=== PATIENT | male | born 1985 | race Caucasian/White ===

== ENCOUNTER 2019-10-23 20:38 | Observation (INO) | payer OTHER, SELFPAY ==
[2019-10-23 20:42] VITALS: BP 140/86; PULSE 134; RESP 22; TEMP 37.3; O2SAT 100
--- NOTE | 2019-10-23 20:47 | DI.RAD.S_ITS ---
PROCEDURE: XR CHEST 1V INDICATIONS: suspected sepsis TECHNIQUE: One view of the chest was acquired. COMPARISON: None. FINDINGS: Surgical changes and devices: None. Lungs and pleura: Lungs are clear. No pleural effusions or pneumothorax. Mediastinum: Mediastinal contours appear normal. Heart size is normal. Bones and chest wall: No suspicious bony lesions. Overlying soft tissues appear unremarkable. IMPRESSION: No acute cardiopulmonary pathology. Dictated by: Ethan Lucia M.D. on 10/23/2019 at 21:29 Approved by: Ethan Lucia M.D. on 10/23/2019 at 21:29
[2019-10-23 21:05] LABS: Hematocrit 43.9 % (41-53); Hemoglobin 15.1 g/dL (13.5-17.5); Mean Corpuscular HGB Conc 34.4 % (30-36); Mean Corpuscular Hemoglobin 29.8 PG (26-34); Mean Corpuscular Volume 86.6 fL (80-100); Platelet Count 114 X10^3/uL (150-400); Red Blood Cell Count 5.07 X10^6/uL (4.5-5.9); Red Cell Distribution Width 12.7 % (11.6-14.8); White Blood Cell Count 12.6 X10^3/uL (4.5-11.0)
[2019-10-23 21:06] LABS: Add Manual Diff / Slide Review YES
[2019-10-23] MEDS: SODIUM CHLORIDE 0.9% 1,000 ML 1000 ML IV (21:06)
[2019-10-23 21:10] LABS: INR 1.2 (0.9-1.3); Prothrombin Time 13.3 SECONDS (10.1-12.7)
--- NOTE | 2019-10-23 21:12 | ED.GENADULT ---
HPI - General Adult General Chief complaint: Abdominal Pain Stated complaint: lower abdominal pain x3 days Time Seen by Provider: 10/23/19 21:09 Source: patient Mode of arrival: Ambulatory Limitations: no limitations History of Present Illness HPI narrative: 34-year-old male otherwise healthy here for evaluation of lower abdominal pain. He states the symptoms have been present for the past several days. He states he is not having any urinary symptoms. Has had nausea but no vomiting. Also has had some fevers. Has never had anything like this in the past. He does state that he has had a couple episodes of loose stools which does not seem to change his abdominal pain. No recent travel. No recent antibiotics. No blood in the stool. Related Data Home Medications Medication Instructions Recorded Confirmed No Known Home Medications 10/23/19 10/23/19 Allergies Allergy/AdvReac Type Severity Reaction Status Date / Time No Known Drug Allergies Allergy Verified 10/23/19 20:44 Review of Systems Constitutional Constitutional: Reports fever(s) and Denies headache(s) ENT Ears, Nose, Mouth, and Throat: Denies headache(s) Cardiovascular Cardiovascular: Denies chest pain and Denies dyspnea Respiratory Respiratory: Denies dyspnea Gastrointestinal Gastrointestinal: Reports abdominal pain, Reports diarrhea, Reports nausea and Denies vomiting Genitourinary Genitourinary: Denies dysuria Genitourinary: Denies dysuria Musculoskeletal Musculoskeletal: Denies arthralgias and Denies myalgias Integumentary/Breasts Skin/Breast: Denies rash Neurologic Neurologic: Denies behavioral changes and Denies headache(s) Psychiatric Psychiatric: Denies behavioral changes Hematologic/Lymphatic Hematologic/Lymphatic: Denies easy bleeding and Denies easy bruising Allergic/Immunologic Allergic/Immunologic: Denies urticaria Patient History Medical History No significant past medical history (Acute) Surgical History (Updated 10/24/19 @ 01:41 by SAVANNA Mckeon) [place] teeth removed (Acute) Family History (Updated 10/24/19 @ 01:47 by SAVANNA Mckeon) Mother Diabetes, type I Social History household members: family Smoking Status: Never smoker Exam Initial Vital Signs Initial Vital Signs: Vital Signs Temperature 99.1 F 10/23/19 20:42 Pulse Rate 134 H 10/23/19 20:42 Respiratory Rate 22 10/23/19 20:42 Blood Pressure 140/86 10/23/19 20:42 Pulse Oximetry 100 10/23/19 20:42 Const General: cooperative Limitations: mental status not altered HENMT Head: normal to inspection and normocephalic Resp Effort & Inspection: normal respiratory effort Auscultation: clear to auscultation bilaterally Cardio Rate: tachycardic Rhythm: regular rhythm GI Inspection: non-distended Palpation: soft, firm and tender (Bilateral lower abdomen) Skin Lesions: no lesions Rashes: no rashes Neuro General: patient alert and patient awake Cognition: normal cognition Speech: speech normal Extrem General: normal to inspection and capillary refill normal Psych Appearance: grossly normal and well kempt Course Orders Ordered: ED Orders 10/23/19 20:46 EKG-12 Lead Stat 10/23/19 20:47 XR chest 1V Stat 10/23/19 20:51 Complete Blood Count AUTO DIFF Stat Comprehensive Metabolic Panel Stat Lactate (Lactic Acid) Stat Lipase Stat Partial Thromboplastin Time Stat Pathologist Review (for CBC) Stat Procalcitonin Stat Prothrombin Time INR Stat 10/23/19 21:09 Blood Culture Stat 10/23/19 21:13 CT abdomen pelvis w con Stat Acetaminophen (Tylenol) 650 mg PO Q6HR PRN PRN Reason: Fever/Mild Pain (1-3) Ciprofloxacin (Cipro) 400 mg in 200 mls @ 200 mls/hr IV NOW ALKA Last Infusion: 10/24/19 02:14 Dose: 0 mls/hr Documented by: Admin: 10/24/19 00:57 Dose: 200 mls/hr Documented by: ANAYELI Sodium Chloride (Normal Saline 0.9%) 1,000 mls @ 150 mls/hr IV CONT ALKA Stop: 11/23/19 05:54 Last Infusion: 10/24/19 00:25 Dose: 150 mls/hr Documented by: Admin: 10/23/19 23:11 Dose: 150 mls/hr Documented by: CARMELA Ciprofloxacin (Cipro) 400 mg in 200 mls @ 200 mls/hr IV Q12H ALKA Metronidazole (Flagyl) 500 mg in 100 mls @ 100 mls/hr IV Q6H ALKA Ketorolac Tromethamine (Toradol) 30 mg IV Q6HR PRN PRN Reason: Pain, Severe (7-10) Stop: 10/29/19 00:57 Naloxone HCl (Narcan) 0.2 mg IV Q2MIN PRN PRN Reason: Opiate Reversal Ondansetron HCl (Zofran) 4 mg IV Q6HR PRN PRN Reason: Nausea And Vomiting Last Admin: 10/24/19 01:53 Dose: 4 mg Documented by: ANAYELI Discontinued Medications Sodium Chloride (Normal Saline 0.9%) 1,000 mls @ 1,000 mls/hr IV BOLUS ONE Stop: 10/23/19 21:46 Last Infusion: 10/23/19 22:38 Dose: 0 mls/hr Documented by: MARIA DEL ROSARIO Infusion: 10/23/19 22:33 Dose: 1,000 mls/hr Documented by: MARIA DEL ROSARIO Infusion: 10/23/19 22:29 Dose: 1,000 mls/hr Documented by: MARIA DEL ROSARIO Infusion: 10/23/19 22:02 Dose: 1,000 mls/hr Documented by: MARIA DEL ROSARIO Infusion: 10/23/19 21:29 Dose: 0 mls/hr Documented by: Admin: 10/23/19 21:06 Dose: 1,000 mls/hr Documented by: CARMELA Metronidazole (Flagyl) 250 mg in 50 mls @ 100 mls/hr IV NOW ONE Stop: 10/23/19 23:24 Last Admin: 10/23/19 23:59 Dose: Not Given Documented by: LEONIDES Metronidazole (Flagyl) 500 mg in 100 mls @ 100 mls/hr IV NOW ONE Stop: 10/24/19 00:46 Last Infusion: 10/24/19 00:26 Dose: 0 mls/hr Documented by: Admin: 10/23/19 23:56 Dose: 100 mls/hr Documented by: LEONIDES Morphine Sulfate (Morphine) 1 mg IV NOW ONE Stop: 10/24/19 01:01 Last Admin: 10/24/19 01:46 Dose: 1 mg Documented by: ANAYELI Ondansetron HCl (Zofran) 4 mg IV NOW ONE Stop: 10/23/19 22:08 Last Admin: 10/23/19 22:14 Dose: 4 mg Documented by: CARMELA Vital Signs Vital signs: Vital Signs - 8 hr 10/23/19 21:39 10/23/19 22:00 Pulse Rate 95 H 91 H Respiratory Rate 17 22 Pulse Oximetry 97 95 Medical Decision Making Lab Data Lab results reviewed: Yes I reviewed the patient's lab results. Result diagrams: 10/23/19 20:51 10/23/19 20:51 Labs: Lab Results 10/23/19 10/23/19 10/23/19 Range/Units 20:51 20:51 20:51 WBC 12.6 H (4.5-11.0) X10^3/uL RBC 5.07 (4.5-5.9) X10^6/uL Hgb 15.1 (13.5-17.5) g/dL Hct 43.9 (41-53) % MCV 86.6 (80-100) fL MCH 29.8 (26-34) PG MCHC 34.4 (30-36) % RDW 12.7 (11.6-14.8) % Plt Count 114 L (150-400) X10^3/uL Neut % (Auto) Not Reportable Lymph % (Auto) Not Reportable [place] % (Auto) Not Reportable Eos % (Auto) Not Reportable Baso % (Auto) Not Reportable Lymph # (Auto) Not Reportable [place] # (Auto) Not Reportable Baso # (Auto) Not Reportable Total Counted 100 Seg Neutrophils % 27.0 L (38-70) % Lymphocytes % (Manual) 66.0 H (25-45) % Atypical Lymphs % 4.0 H ( - 0) % Monocytes % (Manual) 3.0 (2-11) % Neutrophils # (Manual) 3402 (1002-5634) /uL Reactive Lymphocytes 3+ H RBC Morphology Normal morphology PT 13.3 H (10.1-12.7) SECONDS INR 1.2 (0.9-1.3) APTT 30 (26.4-36.2) SECONDS Sodium 136 L (137-145) mmol/L Potassium 3.5 (3.4-5.1) mmol/L Chloride 104 (98-107) mmol/L Carbon Dioxide 25 (22-32) mmol/L BUN 12 (9-20) mg/dL Creatinine 0.93 (0.66-1.25) mg/dL Estimated GFR > 60.0 (>60) mL/min BUN/Creatinine Ratio 12.9 (6-22) Glucose 198 H (70-100) mg/dL Lactate (0.7-2.1) mmol/L Calcium 9.2 (8.4-10.2) mg/dL Total Bilirubin 1.0 (0.2-1.3) mg/dL AST 143 H (17-59) IU/L ALT 446 H (<50) IU/L Alkaline Phosphatase 145 H (38-126) U/L Total Protein 7.0 (6.3-8.2) g/dL Albumin 4.1 (3.5-5.0) g/dL Globulin 2.9 (1.7-4.1) g/dL Albumin/Globulin Ratio 1.4 (1.0-2.8) Lipase 70 (23-300) U/L Procalcitonin (<0.5) ng/mL COVID-19 PCR (Negative) 10/23/19 10/23/19 10/23/19 Range/Units 20:51 20:51 23:14 WBC (4.5-11.0) X10^3/uL RBC (4.5-5.9) X10^6/uL Hgb (13.5-17.5) g/dL Hct (41-53) % MCV (80-100) fL MCH (26-34) PG MCHC (30-36) % RDW (11.6-14.8) % Plt Count (150-400) X10^3/uL Neut % (Auto) Lymph % (Auto) [place] % (Auto) Eos % (Auto) Baso % (Auto) Lymph # (Auto) [place] # (Auto) Baso # (Auto) Total Counted Seg Neutrophils % (38-70) % Lymphocytes % (Manual) (25-45) % Atypical Lymphs % ( - 0) % Monocytes % (Manual) (2-11) % Neutrophils # (Manual) ([id number]) /uL Reactive Lymphocytes RBC Morphology PT (10.1-12.7) SECONDS INR (0.9-1.3) APTT (26.4-36.2) SECONDS Sodium (137-145) mmol/L Potassium (3.4-5.1) mmol/L Chloride (98-107) mmol/L Carbon Dioxide (22-32) mmol/L BUN (9-20) mg/dL Creatinine (0.66-1.25) mg/dL Estimated GFR (>60) mL/min BUN/Creatinine Ratio (6-22) Glucose (70-100) mg/dL Lactate 1.1 (0.7-2.1) mmol/L Calcium (8.4-10.2) mg/dL Total Bilirubin (0.2-1.3) mg/dL AST (17-59) IU/L ALT (<50) IU/L Alkaline Phosphatase (38-126) U/L Total Protein (6.3-8.2) g/dL Albumin (3.5-5.0) g/dL Globulin (1.7-4.1) g/dL Albumin/Globulin Ratio (1.0-2.8) Lipase (23-300) U/L Procalcitonin 0.19 (<0.5) ng/mL COVID-19 PCR Negative (Negative) Urine Dip Bedside Urine Glucose Negative Bedside Urine Bilirubin - Negative Bedside Urine Ketone - Negative Urine Specific [place] 1.005 Bedside Urine Occult Blood - Negative Bedside Urine pH 6.5 Bedside Urine Protein - Negative Bedside Urine Urobilinogen - Negative Bedside Urine Nitrite - Negative Bedside Urine Leukocytes - Negative Esterase Point of care testing: Urine Dip Bedside Urine Glucose Negative Bedside Urine Bilirubin - Negative Bedside Urine Ketone - Negative Urine Specific [place] 1.005 Bedside Urine Occult Blood - Negative Bedside Urine pH 6.5 Bedside Urine Protein - Negative Bedside Urine Urobilinogen - Negative Bedside Urine Nitrite - Negative Bedside Urine Leukocytes - Negative Esterase Imaging Data Chest x-ray: Radiologist's Impression: [place] [address] XRay Report Signed Patient: Beau Del Valle#: [id number] : 1985Acct:[id number] Age/Sex: 34 / MDate of Service: 10/23/19 Loc: ED Accession Number: [id number] Procedure: XR chest 1V Ordering Provider: Ad Reyez D.O. PROCEDURE: XR CHEST 1V INDICATIONS: suspected sepsis TECHNIQUE: One view of the chest was acquired. COMPARISON: None. FINDINGS: Surgical changes and devices: None. Lungs and pleura: Lungs are clear. No pleural effusions or pneumothorax. Mediastinum: Mediastinal contours appear normal. Heart size is normal. Bones and chest wall: No suspicious bony lesions. Overlying soft tissues appear unremarkable. IMPRESSION: No acute cardiopulmonary pathology. Dictated by: Ethan Lucia M.D. on 10/23/2019 at 21:29 Approved by: Ethan Lucia M.D. on 10/23/2019 at 21:29 CT scan - abdomen/pelvis: Radiologist's Impression: [address] [address] [address] Scan Report Signed Patient: Gregory Del ValleMR#: [id number] : 1985Acct:[id number] Age/Sex: 34 / MDate of Service: 10/23/19 Loc: ED Accession Number: [id number] Procedure: CT abdomen pelvis w con Ordering Provider: Ad Reyez D.O. PROCEDURE: CT ABDOMEN PELVIS W CON INDICATIONS: bilateral lower abd pain TECHNIQUE: After the administration of intravenous contrast, 5 mm thick sections acquired from the diaphragm to the symphysis. 5 mm coronal and sagittal reformats were acquired. For radiation dose reduction, the following was used: automated exposure control, adjustment of mA and/or kV according to patient size. COMPARISON: None. FINDINGS: Image quality: Excellent. ABDOMEN: Lung bases: Lung bases are clear. Heart size is normal. Solid organs: Liver is normal in size and enhancement. Gallbladder is contracted and shows no gross abnormality.. Biliary system is non dilated. Pancreas enhances normally. There is splenomegaly, no discrete splenic lesion. No adrenal nodules. Kidneys demonstrate normal size and enhancement, without hydronephrosis. Peritoneum and bowel: There is no bowel obstruction. No small bowel or gastric wall thickening. Appendix is visualized and is within normal limits. Diffuse colonic wall thickening and edema is seen with mild pericolonic fat stranding. No abscess collection. No free fluid or free air. Nodes and vessels: No retroperitoneal or mesenteric adenopathy by size criteria. Aorta and inferior vena cava are normal in size. Miscellaneous: No ventral hernias. PELVIS: Genitourinary: Bladder wall thickness is normal. Miscellaneous: No inguinal hernias or adenopathy. Bones: No suspicious bony lesions. No vertebral body compression fractures. IMPRESSION: 1. Finding is suggestive of pancolitis. Normal appendix. No bowel obstruction. No free fluid or free air. 2. Splenomegaly, no discrete splenic lesion. Dictated by: Ethan Lucia M.D. on 10/23/2019 at 21:45 Approved by: Ethan Lucia M.D. on 10/23/2019 at 21:48 ECG Data Attestation: I personally reviewed and interpreted this ECG as follows: Prior ECG tracings: not available for review Interpretation: Sinus tachycardia Ventricular rate 100 Normal axis Normal QRS Normal QTC No ST T wave changes MDM Narrative Medical decision making narrative: Patient with bilateral lower abdominal tenderness with guarding. Is tachycardic. Has a leukocytosis. CT scan shows a morales colitis. No signs of appendicitis or obstruction or perforation. I did discuss the case with with general surgery who recommended IV antibiotics and admitting the patient to the medicine service for fluids and symptom control. I did discuss the case with SAADIA Garcia the [facility] hospital provider who will admit the patient. I did discuss the findings of the CT scan with the patient and his family who are at bedside. We also discuss the need for admission. They expressed understanding and agreement. Antibiotics started in the emergency department. Discharge Plan Departure Patient Disposition: Admitted as Observation Clinical Impression: Colitis Discharge Date/Time: 10/24/19 00:26 Admit Date/Time: 10/23/19 23:27 Admit Provider: Edita Garcia
[2019-10-23 21:13] LABS: PTT Partial Thromboplastin Tim 30 SECONDS (26.4-36.2)
[2019-10-23 21:16] VITALS: BP 135/84; PULSE 101; RESP 20; TEMP 37.6; O2SAT 95
[2019-10-23 21:17] LABS: Alanine Aminotransferase 446 IU/L (<50); Albumin 4.1 g/dL (3.5-5.0); Albumin Globulin Ratio 1.4 (1.0-2.8); Alkaline Phosphatase 145 U/L (38-126); Aspartate Aminotransferase 143 IU/L (17-59); BUN Creatinine Ratio 12.9 (6-22); Blood Urea Nitrogen 12 mg/dL (9-20); Calcium 9.2 mg/dL (8.4-10.2); Carbon Dioxide 25 mmol/L (22-32); Chloride 104 mmol/L (98-107); Estimated Glomerular Filt Rate > 60.0 mL/min (>60); Globulin 2.9 g/dL (1.7-4.1); Glucose 198 mg/dL (70-100); HEMOLYSIS < 15 (0-50); Lactate (Lactic Acid) 1.1 mmol/L (0.7-2.1); Lipase 70 U/L (23-300); Potassium 3.5 mmol/L (3.4-5.1); Sodium 136 mmol/L (137-145)
[2019-10-23 21:31] LABS: Procalcitonin 0.19 ng/mL (<0.5)
[2019-10-23 21:36] LABS: Neutrophils Absolute Manual 3402 /uL (3000-5900); RBC Morphology Normal Morphology; Total Cells Counted 100
[2019-10-23 21:37] LABS: Reactive Lymphocytes 3+
[2019-10-23 21:39] VITALS: PULSE 95; RESP 17; O2SAT 97
[2019-10-23 22:00] VITALS: PULSE 91; RESP 22; O2SAT 95
[2019-10-23] MEDS: ONDANSETRON 4 MG/2 ML INJ IV (22:14)
[2019-10-23] MEDS: SODIUM CHLORIDE 0.9% 1,000 ML 150 ML IV (23:11)
[2019-10-23] MEDS: metroNIDAZOLE 500 MG/100 ML PIGGYBACK 100 MG IV (23:56)
[2019-10-24] VITALS (8 sets, daily range): BP systolic 114–130; BP diastolic 59–86; PULSE 65–89; RESP 16–20; TEMP 36.8–37.7; O2SAT 94–99; BMI 27.5
[2019-10-24 00:41] LABS: COVID19 -Nasal RAPID Negative (Negative)
[2019-10-24] MEDS: CIPROFLOXACIN 400 MG/200 ML PIGGYBACK 200 MG IV ×2 (00:57→12:07)
--- NOTE | 2019-10-24 01:11 | P.HP_ITS ---
History of Present Illness History of Present Illness Date Patient Seen: 10/24/19 Time Patient Seen: 00:30 Chief complaint: lower abdominal pain x3 days Narrative: Gregory Del Valle is a 34-year-old male with a 3 day history of fevers and lower abdominal pain. He states he has been having diarrheal episodes about once in our and is unable to eat. He stated that he had been taking his temperature and it was sitting in the 102-103 degrees over the last 2 days. He describes his abdominal pain is being in the lower pelvic area radiating across his lower abdomen. He does have an intact appendix. He denies shortness of breath, cough, chest pain, he does endorse having fevers, abdominal cramping and diarrhea. 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 He denies any other health history or taking any prescription medications. In the emergency department he was diagnosed with pancolitis and started on IV Cipro and Flagyl. CT that was done did not indicate appendicitis but did indicate some colonic wall thickening and inflammation. Patient's temp was 99.9?, blood pressure 132/72, heart rate 85, respiratory rate 20, oxygen saturation 97% on room air, weight 87 kilos, BMI of 27.5. His WBC was 12.6, RBC 5.07, hemoglobin 15.1, hematocrit 43.9, platelet count of a 114, sodium 136, potassium 3.5, chloride 104, CO2 25, BUN 12, creatinine 0.93, GFR greater than 60, glucose 198, lactate 1.1, calcium 9.2, total bilirubin 1.0, AST 143, ALT 446, alk-phos 145, lipase normal at 70, procalcitonin 0.19, and COVID- 19 was negative. Patient History Medical History (Updated 10/24/19 @ 01:41 by SAVANNA Mckeon) No significant past medical history (Acute) Surgical History (Updated 10/24/19 @ 01:41 by SAVANNA Mckeon) [place] teeth removed (Acute) Family & Social History Family History (Updated 10/24/19 @ 01:47 by SAVANNA Mckeon) Mother Diabetes, type I Social History: household members family Prior Living Arrangements House Safety & Behavioral: Feels Safe in Current No Environment Been Physically Hurt or No Threatened By a Person Suicidal Ideation Description None Suicide Plan Description No Plan Tobacco & Substance use: Smoking Status Never smoker alcohol intake frequency a few times a week Substance Use Type does not use Meds Home Medications and Allergies Home Medications Medication Instructions Recorded Confirmed Type No Known Home Medications 10/23/19 10/23/19 History Allergies Allergy/AdvReac Type Severity Reaction Status Date / Time No Known Drug Allergies Allergy Verified 10/23/19 20:44 Review of Systems Review of Systems ROS: Yes All systems reviewed with the patient and are negative except as otherwise documented Exam Vital Signs (past 8 hours): - 10/23/19 20:42 10/23/19 21:16 10/23/19 21:39 Temperature 99.1 F 99.6 F Pulse Rate 134 H 101 H 95 H Respiratory Rate 22 20 17 Blood Pressure 140/86 135/84 Pulse Oximetry 100 95 97 10/23/19 22:00 10/24/19 00:20 Temperature 99.8 F H Pulse Rate 91 H 85 Respiratory Rate 22 20 Blood Pressure 126/86 Pulse Oximetry 95 99 Oxygen Delivery Method Room Air Narrative Exam Narrative: Gen: Alert, oriented, well-developed 34 y.o. male, appears uncomfortable HEENT: normocephalic, atraumatic, conjunctiva clear, sclera non-icteric, oral mucosa pink and moist Neck: supple, full ROM, no JVD, trachea is midline Resp: Lungs CTA, non-labored breathing CV: RRR, no murmur or rubs Abd: soft, diffusely tender, hypoactive BTs Skin: no lesions or rashes, dry and intact Neuro: Alert and oriented X 4 w/no focal deficits. Speech clear and coherent. Extremities: moves all 4 extremities, is ambulatory, negative Mike?s sign Psyche: normal mood and affect. Objective Labs Result Diagrams: 10/23/19 20:51 10/23/19 20:51 Labs: Laboratory Results - last 24 hr 10/23/19 10/23/19 10/23/19 20:51 20:51 20:51 WBC 12.6 H RBC 5.07 Hgb 15.1 Hct 43.9 MCV 86.6 MCH 29.8 MCHC 34.4 RDW 12.7 Plt Count 114 L Neut % (Auto) Not Reportable Lymph % (Auto) Not Reportable [place] % (Auto) Not Reportable Eos % (Auto) Not Reportable Baso % (Auto) Not Reportable Lymph # (Auto) Not Reportable [place] # (Auto) Not Reportable Baso # (Auto) Not Reportable Total Counted 100 Seg Neutrophils % 27.0 L Lymphocytes % (Manual) 66.0 H Atypical Lymphs % 4.0 H Monocytes % (Manual) 3.0 Neutrophils # (Manual) 3402 Reactive Lymphocytes 3+ H RBC Morphology Normal morphology PT 13.3 H INR 1.2 APTT 30 Sodium 136 L Potassium 3.5 Chloride 104 Carbon Dioxide 25 BUN 12 Creatinine 0.93 Estimated GFR > 60.0 BUN/Creatinine Ratio 12.9 Glucose 198 H Lactate Calcium 9.2 Total Bilirubin 1.0 AST 143 H ALT 446 H Alkaline Phosphatase 145 H Total Protein 7.0 Albumin 4.1 Globulin 2.9 Albumin/Globulin Ratio 1.4 Lipase 70 Procalcitonin COVID-19 PCR 10/23/19 10/23/19 10/23/19 20:51 20:51 23:14 WBC RBC Hgb Hct MCV MCH MCHC RDW Plt Count Neut % (Auto) Lymph % (Auto) [place] % (Auto) Eos % (Auto) Baso % (Auto) Lymph # (Auto) [place] # (Auto) Baso # (Auto) Total Counted Seg Neutrophils % Lymphocytes % (Manual) Atypical Lymphs % Monocytes % (Manual) Neutrophils # (Manual) Reactive Lymphocytes RBC Morphology PT INR APTT Sodium Potassium Chloride Carbon Dioxide BUN Creatinine Estimated GFR BUN/Creatinine Ratio Glucose Lactate 1.1 Calcium Total Bilirubin AST ALT Alkaline Phosphatase Total Protein Albumin Globulin Albumin/Globulin Ratio Lipase Procalcitonin 0.19 COVID-19 PCR Negative Assessment & Plan Assessment & Plan narrative: Gregory Del Valle will be placed into observaton for treatment and management of a morales colitis. -IV Cipro and metronidazole Q 6 hours -NPO tonight clears in the morning -pain control with IV morphine and ketorolac -If worsening, will request surgical consultation Consults: None Patient is observation status as his stay is not likely to exceed 2 midnights. FEN: IV NS at 125 ml/hour, NPO, advance to clears, CMP in the am. VTE prophylaxis: Bilateral SCDs Dispo: Likely discharged to home Code Status: as discussed with patient
[2019-10-24] MEDS: MORPHINE 2 MG/ML INJ 1 MG IV (01:46)
[2019-10-24] MEDS: ONDANSETRON 4 MG/2 ML INJ IV (01:53)
[2019-10-24] MEDS: KETOROLAC 30 MG/ML VIAL IV ×2 (07:33→14:28)
--- NOTE | 2019-10-24 10:49 | CM.DANOTE ---
DCP: Case received, EMR reviewed and met with patient. Introduced self and role. Was able to meet with patient and obtain information regarding his baseline activity level. DCP assessment completed with information currently available. Patient is a 34 year old male who admitted yesterday evening to the care of the hospitalist team. PCP: Dr. Solomon at [facility]. Payer: confirmed: [employer]. Patient came to the hospital secondary to having abdominal discomfort, loose stools and a fever. Patient holds current diagnosis of pancolitis. Met with patient in his room. He was sitting up in bed, alert and oriented, pleasant. 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 He resides in [place], his , Bertha, is out of the country at this time. He stated that he has plenty support of friends, if there is anything that he needs at discharge. P: DCP to continue to follow. Patient should be able to discharge home when he is medically stable. Dasha Post RN/Counter Top Maker
[2019-10-24 12:49] LABS: Clostridium difficile toxin AB Not Detected (Not Detect); Enteroaggregative E.coli Not Detected (Not Detect); Enteropathogenic E.coli Not Detected (Not Detect); Enterotoxigenic E.coli It/st Not Detected (Not Detect); Plesiomonsa shigelloides Not Detected (Not Detect); Salmonella Not Detected (Not Detect); Shiga-like toxin-prod E.coli Not Detected (Not Detect); Vibrio Not Detected (Not Detect); Vibrio cholerae Not Detected (Not Detect); Yersinia enterocolitica Not Detected (Not Detect)
[2019-10-24 12:50] LABS: Adenovirus F 40/41 Not Detected (Not Detect); Astrovirus Not Detected (Not Detect); Cryptosporidium Not Detected (Not Detect); Cyclospora cayetanensis Not Detected (Not Detect); Entamoeba histolytica Not Detected (Not Detect); Giardia lamblia Not Detected (Not Detect); Norovirus GI/GII Not Detected (Not Detect); Rotavirus A Not Detected (Not Detect); Shigella/Enteroinvasive E.coli Not Detected (Not Detect)
[2019-10-24 12:51] LABS: Sapovirus Not Detected (Not Detect)
[2019-10-24 12:52] LABS: Campylobacter Detected (Not Detect)
[2019-10-24] MEDS: AZITHROMYCIN 250 MG TABLET 500 MG PO (14:22)
[2019-10-24] MEDS: ACETAMINOPHEN 325 MG TABLET 650 MG PO (14:28)
[2019-10-24] MEDS: SODIUM CHLORIDE 0.9% 1,000 ML 150 ML IV (15:44)
[2019-10-25 05:48] LABS: Add Manual Diff / Slide Review NO; Basophils Absolute Auto 0 /uL (0-100); Basophils Percent Auto 0.2 % (0-2); Eosinophils Absolute Auto 0 /uL (0-450); Eosinophils Percent Auto 0.3 % (2-4); Hematocrit 38.5 % (41-53); Hemoglobin 13.4 g/dL (13.5-17.5); Lymphocytes Absolute Auto 4700 /uL (1100-4500); Lymphocytes Percent Auto 64.7 % (25-40); Mean Corpuscular HGB Conc 34.9 % (30-36); Mean Corpuscular Hemoglobin 30.3 PG (26-34); Mean Corpuscular Volume 86.9 fL (80-100); Monocytes Absolute Auto 600 /uL (0-900); Monocytes Percent Auto 8.2 % (3-14); Neutrophils Absolute Auto 1900 /uL (1500-7000); Neutrophils Percent Auto 26.6 % (50-75); Platelet Count 94 X10^3/uL (150-400); Red Blood Cell Count 4.43 X10^6/uL (4.5-5.9); Red Cell Distribution Width 12.3 % (11.6-14.8); White Blood Cell Count 7.2 X10^3/uL (4.5-11.0)
[2019-10-25 05:54] LABS: Alanine Aminotransferase 282 IU/L (<50); Albumin 3.1 g/dL (3.5-5.0); Albumin Globulin Ratio 1.2 (1.0-2.8); Alkaline Phosphatase 99 U/L (38-126); Aspartate Aminotransferase 104 IU/L (17-59); BUN Creatinine Ratio 5.9 (6-22); Bilirubin Total 0.7 mg/dL (0.2-1.3); Blood Urea Nitrogen 5 mg/dL (9-20); Calcium 8.1 mg/dL (8.4-10.2); Carbon Dioxide 28 mmol/L (22-32); Chloride 108 mmol/L (98-107); Estimated Glomerular Filt Rate > 60.0 mL/min (>60); Globulin 2.6 g/dL (1.7-4.1); Glucose 107 mg/dL (70-100); HEMOLYSIS < 15 (0-50); Magnesium 2.1 mg/dL (1.6-2.3); Sodium 138 mmol/L (137-145); Total Protein 5.7 g/dL (6.3-8.2)
[2019-10-25 07:00] VITALS: BP 124/67; PULSE 67; RESP 16; TEMP 36.3; O2SAT 97
[2019-10-25 07:16] LABS: HIV 1 & 2 Ab/Ag 4th Gen Combo NEGATIVE (NEGATIVE)
[2019-10-25 08:32] VITALS: O2SAT 97
[2019-10-25] MEDS: SODIUM CHLORIDE 0.9% FLUSH 10 ML IV (08:40)
[2019-10-25] MEDS: KETOROLAC 30 MG/ML VIAL IV (08:40)
--- NOTE | 2019-10-25 08:51 | PC.NURSE ---
Addendum entered by Azra Gupta R.N. 10/25/19 13:08: Went over dc instructions and meds with patient, questions answered. Rx for abx sent electronically to Headroom. Addendum entered by Azra Gupta R.N. 10/25/19 12:50: Patient ate about 50% of lunch without nausea or increase in pain. Patient reports having a loose bowel movement. Patient wanting to discharge. Original Note: Patient alert oriented, rates left side lower abdominal pain 4/10, given 30mg IV toradol. BT hypoactive on left, denies nausea. Reports last BM at 0400. Tolerated bland diet.
--- NOTE | 2019-10-25 09:02 | P.DS_ITS ---
History of Present Illness History of Present Illness Date Patient Seen: 10/25/19 Time Patient Seen: 09:02 Chief complaint: lower abdominal pain x3 days Narrative: As per SAVANNA Mckeon: Gregory Del Valle is a 34-year-old male with a 3 day history of fevers and lower abdominal pain. He states he has been having diarrheal episodes about once in our and is unable to eat. He stated that he had been taking his temperature and it was sitting in the 102-103 degrees over the last 2 days. He describes his abdominal pain is being in the lower pelvic area radiating across his lower abdomen. He does have an intact appendix. He denies shortness of breath, cough, chest pain, he does endorse having fevers, abdominal cramping and diarrhea. Patient is a [place] and was in [place] until July of this year. He denies any other health history or taking any prescription medications. In the emergency department he was diagnosed with pancolitis and started on IV Cipro and Flagyl. CT that was done did not indicate appendicitis but did indicate some colonic wall thickening and inflammation. Patient's temp was 99.9?, blood pressure 132/72, heart rate 85, respiratory rate 20, oxygen saturation 97% on room air, weight 87 kilos, BMI of 27.5. His WBC was 12.6, RBC 5.07, hemoglobin 15.1, hematocrit 43.9, platelet count of a 114, sodium 136, potassium 3.5, chloride 104, CO2 25, BUN 12, creatinine 0.93, GFR greater than 60, glucose 198, lactate 1.1, calcium 9.2, total bilirubin 1.0, AST 143, ALT 446, alk-phos 145, lipase normal at 70, procalcitonin 0.19, and COVID- 19 was negative. Discharge Providers Provider Date of admission: 10/23/19 23:27 Discharge Date: 10/25/19 Discharge provider: Gama Rubin DO Summary Hospital Course Discharge Diagnosis: 1. campylobacter colitis, acute, present on admission, improved. Hospital Course: Gregory Del Valle is a 34 year old male who presented with diarrhea. He then developed abdominal pain, nausea and vomiting and was not able to tolerate adequate PO intake. His CT scan showed a morales-coliitis. He was admitted under observation status. GI panel was sent which showed campylobacter infection. He was inititially on broad spectrum antibiotics and narrowed to oral azithromycin once results came back. He was discharged as soon as his diarrhea had improved to a tolerable level and he was tolerating adequate oral intake. He was discharged with a week of oral azithromycin and was advised to stop his course once he had his first regular stool. Status at Discharge Cognitive/behavioral status at discharge: oriented Time Spent with Patient Time spent: Less than 30 minutes Exam Vital Signs (past 8 hours): - 10/25/19 07:00 10/25/19 08:32 Temperature 97.4 F L Pulse Rate 67 Respiratory Rate 16 Blood Pressure 124/67 Pulse Oximetry 97 97 Oxygen Delivery Method Room Air Oxygen Flow Rate 0 Narrative Exam Narrative: GENERAL APPEARANCE: Well developed, well nourished, in no acute distress. SKIN: Inspection of the skin reveals no rashes, ulcerations or petechiae. HEENT: Normocephalic atraumatic, extraocular muscles are intact, oropharynx is clear and mucous membranes are moist, neck is supple without adenopathy NECK: Supple and symmetric. There was no thyroid enlargement, and no tenderness, or masses were felt. CHEST: Normal AP diameter and normal contour without any kyphoscoliosis. LUNGS: Auscultation of the lungs revealed no wheezes, rhonchi, or rales. CARDIOVASCULAR: There was a regular rate and rhythm without any murmurs, gallops, rubs. Peripheral pulses were 2+ and symmetric. ABDOMEN: Soft and nontender with normal bowel sounds. No ascites was noted. MUSCULOSKELETAL: There was no tenderness or effusions noted. Muscle strength and tone were normal. EXTREMITIES: No cyanosis, clubbing or edema. NEUROLOGIC: Alert and oriented x 3. Normal affect. Gait was normal. Strength is +5/5 in the Upper Extremities and Lower Extremities Bilaterally. Sensation to touch was normal. Objective Labs Result Diagrams: 10/25/19 05:24 10/25/19 05:24 Labs: Laboratory Results - last 24 hr 10/24/19 10/25/19 10/25/19 10:50 05:24 05:24 WBC 7.2 RBC 4.43 L Hgb 13.4 L Hct 38.5 L MCV 86.9 MCH 30.3 MCHC 34.9 RDW 12.3 Plt Count 94 L Neut % (Auto) 26.6 L Lymph % (Auto) 64.7 H [place] % (Auto) 8.2 Eos % (Auto) 0.3 L Baso % (Auto) 0.2 Neut # (Auto) 1900 Lymph # (Auto) 4700 H [place] # (Auto) 600 Eos # (Auto) 0 Baso # (Auto) 0 Sodium 138 Potassium 4.0 Chloride 108 H Carbon Dioxide 28 BUN 5 L Creatinine 0.85 Estimated GFR > 60.0 BUN/Creatinine Ratio 5.9 L Glucose 107 H Calcium 8.1 L Magnesium 2.1 Total Bilirubin 0.7 AST 104 H ALT 282 H Alkaline Phosphatase 99 Total Protein 5.7 L Albumin 3.1 L Globulin 2.6 Albumin/Globulin Ratio 1.2 Stl C. cayetanensis PCR Not detected Stool Rotavirus (PCR) Not detected Stool Adenovirus (PCR) Not detected Stool Astrovirus (PCR) Not detected Stool Cryptosporidium PCR Not detected Stl E.coli Shiga Tox PCR Not detected St Sh/Enteroin Ecoli PCR Not detected Stool E coli O157 PCR Not Reportable Stl Enterotoxigenic E PCR Not detected Stool EPEC (PCR) Not detected Stl E. histolytica PCR Not detected Stool Giardia Lamblia PCR Not detected Stool Sapovirus (PCR) Not detected Stl P. shigelloides PCR Not detected St Y.enterocolitica PCR Not detected Stool Vibrio (PCR) Not detected Stl Vibrio cholerae PCR Not detected Stl Enteroaggr Ecoli PCR Not detected Stl Norovirus GI/GII PCR Not detected Campylobacter (PCR) Detected H C. difficile Tox (PCR) Not detected HIV 1&2 Ab/P24 Ag 4thGn Salmonella (PCR) Not detected 10/25/19 05:24 WBC RBC Hgb Hct MCV MCH MCHC RDW Plt Count Neut % (Auto) Lymph % (Auto) [place] % (Auto) Eos % (Auto) Baso % (Auto) Neut # (Auto) Lymph # (Auto) [place] # (Auto) Eos # (Auto) Baso # (Auto) Sodium Potassium Chloride Carbon Dioxide BUN Creatinine Estimated GFR BUN/Creatinine Ratio Glucose Calcium Magnesium Total Bilirubin AST ALT Alkaline Phosphatase Total Protein Albumin Globulin Albumin/Globulin Ratio Stl C. cayetanensis PCR Stool Rotavirus (PCR) Stool Adenovirus (PCR) Stool Astrovirus (PCR) Stool Cryptosporidium PCR Stl E.coli Shiga Tox PCR St Sh/Enteroin Ecoli PCR Stool E coli O157 PCR Stl Enterotoxigenic E PCR Stool EPEC (PCR) Stl E. histolytica PCR Stool Giardia [place]lia PCR Stool Sapovirus (PCR) Stl P. shigelloides PCR St Y.enterocolitica PCR Stool Vibrio (PCR) Stl Vibrio cholerae PCR Stl Enteroaggr Ecoli PCR Stl Norovirus GI/GII PCR Campylobacter (PCR) C. difficile Tox (PCR) HIV 1&2 Ab/P24 Ag 4thGn Negative Salmonella (PCR) Discharge Plan Discharge Plan Patient Disposition: Home Discharge comment: You were admitted to the hospital with diarrhea. You were found to have an infection called campylobacter which is treated with antibiotics. You should continue the antibiotics until your symptoms resolve. You are being given a week of antibiotics but you can stop taking them when you have your first normal bowel movement. Should you start to have worsening stools please come back for further evaluation. Would eat a bland diet (BRAT diet) until symptoms are improved. Discharge orders & Medications Prescriptions: New azithromycin 500 mg tablet 500 mg PO Q24H 7 Days Qty: 7 RF: 0 No Action No Known Home Medications RF: 0 Discharge Health Status Health Concerns: Campylobacter Colitis Diet/Activity/Treatments Diet: Diet as Tolerated Activity: As tolerated Visit Report/Discharge Packet Instructions: [place] Diet Visit Report Forms: Patient Portal/API, Stroke Signs & Symptoms Discharge Data Attending Provider: Edita Garcia Admit Date/Time: 10/23/19 23:27 Discharges patient from system. Discharge Date/Time: 10/25/19 13:50
[2019-10-25] MEDS: AZITHROMYCIN 250 MG TABLET 500 MG PO (12:32)
== END 2019-10-25 13:50 | disposition home or self-care (01) ==
LOC: ED 23:24 → AC 23:27
PROVIDERS: Internal Medicine; Admitting Provider Nurse Practitioner Family; Emergency Provider Emergency Medicine; Visit Provider Nurse Practitioner Family
DX: A04.5 Campylobacter enteritis (principal); Z11.59 Encounter for screening for other viral diseases
CPT/HCPCS: 36415; 71045; 74177; 80053; 81003; 83605; 83690; 83735; 84145; 85025; 85610; 85730; 87040; 87389; 87507; 87635; 93005; 96361; 96365; 96366; 96367; 96375; 96376; 99285; G0378; J0744; J1885; J2270; J2405; Q9967